=== PATIENT | female | born 1945 | race Caucasian/White ===

== ENCOUNTER 2017-06-16 21:12 | Emergency (ER) | payer OTHER, MEDICAID ==
[~2017-06-16] VITALS: Ht 172.7 cm; Wt 77.1 kg
[~2017-06-16 21:12] MED LIST: ALBU18; ATOR20TA PO; CARV25TA55 PO; CLO01T PO; CLON0.5T3 PO; HYDR-2652 PO; HYDR12.56 PO; LEVE100020 PO; LIS20T PO; LISI-646 PO; MEMA28CA PO; RASA0.5T PO; TRAZ100T2 PO
[2017-06-16 21:18] VITALS: BP 157/84
== END 2017-06-16 23:02 | disposition left against medical advice (07) ==
LOC: EDBD 21:12 → EDSEX 21:12 → ER 21:16
DX: M54.2 Cervicalgia (principal); R51 Headache; R11.2 Nausea with vomiting, unspecified; Z53.21 Procedure and treatment not carried out due to patient leaving prior to being seen by health care provider; V49.59XA Passenger injured in collision with other motor vehicles in traffic accident, initial encounter; Y93.89 Activity, other specified; Y99.8 Other external cause status; Y92.410 Unspecified street and highway as the place of occurrence of the external cause
CPT/HCPCS: 70450; 72125

== ENCOUNTER 2023-08-23 07:45 | Day surgery (SDC) | payer OTHER, MEDICAID ==
[~2023-08-23] VITALS: Ht 152.4 cm; Wt 52.2 kg
[2023-08-23] VITALS (9 sets, daily range): BP systolic 128–150; BP diastolic 56–82; PULSE 65–85; RESP 12–20; TEMP 97.8; O2SAT 91–96
[~2023-08-23 07:45] MED LIST changes: -ALBU18; +CARB25TA79 PO; -CARV25TA55 PO; -CLO01T PO; -CLON0.5T3 PO; -HYDR-2652 PO; +HYDR-4297 PO; -HYDR12.56 PO; -LISI-646 PO; +NAP500T PO; +NIFE1TAB30 PO; +ROPI0.5T4 PO; +TRAZ-228 PO; -TRAZ100T2 PO; +ZOLP5TAB5 PO
[2023-08-23] MEDS ORDERED: IODIXANOL 320MG/ML 100ML BTL IV ONE (08:51)
[2023-08-23] MEDS ORDERED: LIDOCAINE 2%HCL (LOCAL ANESTH.) INJ 20ML MDV ONE (08:51)
[2023-08-23] MEDS ORDERED: HEPARIN IN NS 1000Units/500mL 1,500 ML ONE (08:51)
[2023-08-23] MEDS ORDERED: MIDAZOLAM HCL 2MG/2ML 2ml VIAL (1mg/ml) ONE (09:01)
[2023-08-23] MEDS ORDERED: VERAPAMIL 2.5MG/ML INJ 2ML VIAL IV ONE (09:01)
[2023-08-23] MEDS ORDERED: ANGIOMAX 250 MG VIAL IV ONE (09:01)
[2023-08-23] MEDS ORDERED: SODIUM CHL 0.9% 0 ML ONE (09:01)
[2023-08-23] MEDS ORDERED: fentaNYL CITRATE 100 MCG/2 ML VL ONE (09:01)
[2023-08-23] MEDS ORDERED: HEPARIN SODIUM (PORCINE) 5000 UNITS/ML 1ML VIAL ONE (09:01)
== END 2023-08-23 12:10 | disposition home or self-care (01) ==
LOC: CATH 07:45
PROVIDERS: ATTEND Internal Medicine
DX: I25.118 Atherosclerotic heart disease of native coronary artery with other forms of angina pectoris (principal); I10 Essential (primary) hypertension; R94.39 Abnormal result of other cardiovascular function study; G20.A1 Parkinson's disease without dyskinesia, without mention of fluctuations; E78.00 Pure hypercholesterolemia, unspecified; J44.9 Chronic obstructive pulmonary disease, unspecified; Z79.899 Other long term (current) drug therapy; Z79.01 Long term (current) use of anticoagulants
CPT/HCPCS: 93458; C1725; C1894; J1644; J2250; J3010; Q9967; 99152